=== PATIENT | male | born 1965 | race Caucasian/White ===

== ENCOUNTER → 2021-02-23 | Outpatient (CLI) | payer MEDICARE, MEDICAID ==
[~2021-02-23] MED LIST: ASPI81TA45 PO; ATOR40TA78 PO; B CO1TAB14 PO; CHOL-33 PO; DIVA-61 PO; EMPA25TA PO; FLUO20TA25 PO; INSU100V8 SQ; LAMO25TB7 PO; LEVO88TA4 PO; NORT25CA78 PO; PANT40TA3 PO; TAMS-11 PO; humalog PO
[2021-02-23 15:38] LABS: ALBUMIN 3.5 g/dL (3.4-5.0); ANION GAP 4 mmol/L (5-15); CALCIUM 9.1 mg/dL (8.5-10.1); CHLORIDE 104 mmol/L (98-107)
[2021-02-23 15:43] LABS: ALANINE AMINOTRANSFERASE 80 U/L (12-78); ALKALINE PHOSPHATASE 107 U/L (45-117); BILIRUBIN,TOTAL 0.9 mg/dL (0.2-1.0); CREATININE 0.82 mg/dL (0.7-1.3); TOTAL PROTEIN 7.3 g/dL (6.4-8.2)
[2021-02-23 15:49] LABS: MICROSCOPIC NOT IND
== END | disposition home or self-care (01) ==
LOC: STAR 14:19
PROVIDERS: ATTEND Urology
DX: Z01.812 Encounter for preprocedural laboratory examination (principal); Z20.822 Contact with and (suspected) exposure to COVID-19; N40.1 Benign prostatic hyperplasia with lower urinary tract symptoms; I44.4 Left anterior fascicular block; R94.31 Abnormal electrocardiogram [ECG] [EKG]
CPT/HCPCS: 36415; 80053; 81003; 87086; 87635; 93005

== ENCOUNTER → 2021-03-01 | Day surgery (SDC) | payer MEDICARE, MEDICAID ==
[~2021-03-01] VITALS: Ht 172.7 cm; Wt 105.0 kg
[2021-03-01 20:06] VITALS: BP 116/60
== END | disposition home or self-care (01) ==
LOC: OR 09:10 → 4NE 14:52
PROVIDERS: ATTEND Urology
DX: N40.1 Benign prostatic hyperplasia with lower urinary tract symptoms (principal); E11.9 Type 2 diabetes mellitus without complications; F17.210 Nicotine dependence, cigarettes, uncomplicated; Z79.4 Long term (current) use of insulin; Z79.899 Other long term (current) drug therapy; Z79.82 Long term (current) use of aspirin
CPT/HCPCS: 52601; 82962; 88305; J0330; J0690; J1170; J1815; J1885; J2250; J2270; J2704; J2710; J3010; J3360; J7120